=== PATIENT | male | born 2000 | race American Indian/Alaskan Native ===

== ENCOUNTER 2021-08-19 07:39 | Emergency (ER) | payer SELFPAY ==
--- NOTE | 2021-08-19 08:07 | Emergency Department Report ---
ED Shortness of Breath HPI - General Chief Complaint: Abdominal Pain Stated Complaint: RECTAL PAIN Time Seen by Provider: 08/19/21 08:00 Source: patient, EMS Mode of arrival: Stretcher Limitations: No Limitations - History of Present Illness Initial Comments: Patient is 21 years old male with history of end-stage renal disease on hemodialysis. Patient also had history of HIV. Patient presented to the ER complaining of shortness of breath. Patient stated that he missed his dialysis on Thursday. Patient denied any fever or chills. No chest pain, abdominal pain, nausea or vomiting. MD Complaint: shortness of breath, cough -: days(s) - Related Data Allergies Allergy/AdvReac Type Severity Reaction Status Date / Time amoxicillin Allergy Hives Verified 08/19/21 07:45 ED Review of Systems ROS: Stated complaint: RECTAL PAIN Other details as noted in HPI Comment: All other systems reviewed and negative Constitutional: denies: chills, fever ED Past Medical Hx - Past Medical History Previous Medical History?: No ED Physical Exam - General Limitations: No Limitations ED Course Vital Signs 08/19/21 07:44 Temperature 98.6 F Pulse Rate 80 Respiratory 16 Rate Blood Pressure 151/88 [Right] O2 Sat by Pulse 100 Oximetry Critical care attestation.: If time is entered above; I have spent that time in minutes in the direct care of this critically ill patient, excluding procedure time. ED Disposition Condition: Stable
--- NOTE | 2021-08-19 08:21 | Emergency Department Report ---
ED Abdominal Pain HPI - General Chief Complaint: Abdominal Pain Stated Complaint: RECTAL PAIN Time Seen by Provider: 08/19/21 08:00 Source: patient, EMS Mode of arrival: Stretcher Limitations: No Limitations - History of Present Illness Initial Comments: Patient is 21 years old male with no significant past medical history. Patient brought to the emergency room via EMS from home for evaluation of abdominal pain mainly to the left upper and lower quadrant area. Patient described the pain as sharp. Patient denied any nausea or vomiting however he described a mucus bloody diarrhea for the last 3 days. He denied any fever or chills. MD Complaint: abdominal pain -: days(s) (3) Location: LUQ, LLQ Radiation: none Migration to: no migration Severity scale (0 -10): 3 - Related Data Allergies Allergy/AdvReac Type Severity Reaction Status Date / Time amoxicillin Allergy Hives Verified 08/19/21 07:45 ED Review of Systems ROS: Stated complaint: RECTAL PAIN Other details as noted in HPI Comment: All other systems reviewed and negative Constitutional: denies: chills, fever Respiratory: denies: cough, shortness of breath, SOB with exertion, SOB at rest Cardiovascular: denies: chest pain, palpitations Gastrointestinal: abdominal pain. denies: nausea, vomiting, diarrhea, constipation, hematemesis, hematochezia Musculoskeletal: denies: back pain Neurological: denies: headache, weakness, numbness, paresthesias ED Past Medical Hx - Past Medical History Previous Medical History?: No ED Physical Exam - General Limitations: No Limitations General appearance: alert, in no apparent distress - Head Head exam: Present: atraumatic, normocephalic, normal inspection - Eye Eye exam: Present: normal appearance - ENT ENT exam: Present: normal exam, normal orophraynx, mucous membranes moist - Neck Neck exam: Present: normal inspection, full ROM. Absent: tenderness, meningismus - Respiratory Respiratory exam: Present: normal lung sounds bilaterally - Cardiovascular Cardiovascular Exam: Present: regular rate, normal rhythm, normal heart sounds - GI/Abdominal GI/Abdominal exam: Present: soft, normal bowel sounds. Absent: distended, tenderness, guarding, rebound, rigid, organomegaly, mass, bruit, pulsatile mass, hernia - Extremities Exam Extremities exam: Present: normal inspection, full ROM, normal capillary refill. Absent: tenderness - Back Exam Back exam: Present: normal inspection, full ROM. Absent: CVA tenderness (R), CVA tenderness (L) - Neurological Exam Neurological exam: Present: alert, oriented X3, CN II-XII intact, normal gait, reflexes normal. Absent: motor sensory deficit - Psychiatric Psychiatric exam: Present: normal mood - Skin Skin exam: Present: warm, intact, normal color ED Course Vital Signs 08/19/21 08/19/21 08/19/21 07:44 08:04 08:27 Temperature 98.6 F Pulse Rate 80 Respiratory 16 Rate Blood Pressure Blood Pressure 151/88 [Right] O2 Sat by Pulse 100 97 98 Oximetry 08/19/21 08/19/21 08/19/21 08:31 08:45 09:01 Temperature Pulse Rate Respiratory Rate Blood Pressure 116/58 124/56 Blood Pressure [Right] O2 Sat by Pulse 98 98 97 Oximetry 08/19/21 08/19/21 08/19/21 09:15 09:31 09:45 Temperature Pulse Rate 66 74 Respiratory 14 29 H Rate Blood Pressure 130/80 108/57 123/72 Blood Pressure [Right] O2 Sat by Pulse 98 97 97 Oximetry 08/19/21 08/19/21 10:15 10:31 Temperature Pulse Rate 50 L Respiratory 20 Rate Blood Pressure 119/47 112/63 Blood Pressure [Right] O2 Sat by Pulse 96 97 Oximetry ED Medical Decision Making - Lab Data Result diagrams: 08/19/21 08:30 08/19/21 08:30 - Radiology Data Radiology results: report reviewed - Medical Decision Making Patient is 21 years old male with no significant past medical history. Patient brought to the emergency room via EMS from home for evaluation of abdominal pain mainly to the left upper and lower quadrant area. Patient described the pain as sharp. Patient denied any nausea or vomiting however he described a mucus bloody diarrhea for the last 3 days. He denied any fever or chills. Labs reviewed and is unremarkable. CT abdomen and pelvis showed acute colitis. Patient received morphine, Zofran and normal saline. Patient stated that he is feeling much better. Patient given prescription for ciprofloxacin, Flagyl and Zofran. Patient advised to follow-up with his primary care physician in the next 2 to 3 days and to return to the ER if he develop any new symptoms. Critical care attestation.: If time is entered above; I have spent that time in minutes in the direct care of this critically ill patient, excluding procedure time. ED Disposition Clinical Impression: Acute abdominal pain, Acute colitis Disposition: 01 HOME / SELF CARE / HOMELESS Is pt being admited?: No Condition: Stable Instructions: Abdominal Pain, Adult, [id number], Colitis Referrals: ADINA DICKERSON MD [Staff Physician] - 3-5 Days
[2021-08-19 08:47] LABS: Basophils % (Auto) 0.4 % (0.0-1.8); Eosinophils % (Auto) 0.1 % (0.0-4.3); Hematocrit 41.1 % (35.5-45.6); Hemoglobin 14.5 gm/dl (11.8-15.2); Lymphocytes % (Auto) 14.6 % (13.4-35.0); Mean Corpuscular HGB Conc 35 % (32-34); Mean Corpuscular Volume 96 fl (84-94); Monocytes # (Auto) 0.9 K/mm3 (0.0-0.8); Monocytes % (Auto) 12.3 % (0.0-7.3); Platelet Count 214 K/mm3 (140-440); Red Cell Distribution Width 12.5 % (13.2-15.2)
[2021-08-19 09:04] LABS: Blood Urea Nitrogen 6 mg/dL (9-20); Calcium 9.7 mg/dL (8.4-10.2); Hemolysis Index 7
[2021-08-19 09:06] LABS: Albumin 4.6 g/dL (3.9-5); Bilirubin,Direct 0.2 mg/dL (0-0.2)
[2021-08-19 09:10] LABS: Bilirubin,Urine NEG (Negative); Blood,Urine MOD (Negative); Color,Urine Amber (Yellow); Mucus,Urine 3+ /HPF
[2021-08-19 09:11] LABS: BUN/Creatinine Ratio 9
[2021-08-19] MEDS ORDERED: SODIUM CHLORIDE 0.9% 1000 ML 1,000 ML IV ONE (09:17)
[2021-08-19] MEDS ORDERED: ONDANSETRON 4 MG/2 ML INJ IV ONE (09:17)
[2021-08-19] MEDS ORDERED: MORPHINE 4 MG/1 ML INJ IV ONE (09:17)
--- NOTE | 2021-08-19 10:02 | XRay Report ---
CHEST 1 VIEW INDICATION: Dyspnea. Stomach pain. COMPARISON: None FINDINGS: Support devices: None. Heart: Within normal limits. Lungs/Pleura: No acute air space or interstitial disease. Additional findings: None. IMPRESSION: No acute findings. Signer Name: Ruben Arauz Jr, MD Signed: 08/19/2021 9:58 AM Workstation Name: [id number]
--- NOTE | 2021-08-19 10:35 | Cat Scan Report ---
CT abdomen pelvis w con INDICATION / CLINICAL INFORMATION: abdominal pain. TECHNIQUE: Axial CT images were obtained through the abdomen and pelvis after 100 cc of Omnipaque [address] scans at this location are performed using CT dose reduction for ALARA by means of automated exposure control. COMPARISON: None available. FINDINGS: LOWER CHEST: No significant abnormality LIVER: No significant abnormality GALLBLADDER/BILIARY TREE: No significant abnormality PANCREAS: No significant abnormality SPLEEN: No significant abnormality ADRENALS: No significant abnormality RIGHT KIDNEY / URETER: No significant abnormality LEFT KIDNEY / URETER: No significant abnormality URINARY BLADDER: Bladder is partially decompressed, though grossly unremarkable. REPRODUCTIVE ORGANS: No significant abnormality STOMACH / BOWEL: Small bowel is normal in caliber. Mural thickening and inflammatory stranding of the colon extending from the splenic flexure to the proximal sigmoid. Remainder of the colon is unremark able. No evidence of appendicitis. LYMPH NODES: No significant adenopathy. VASCULATURE: No significant abnormality. OTHER: No free air, free fluid, or focal fluid collection is identified. SKELETAL SYSTEM: No acute osseous findings. IMPRESSION: 1. Acute colitis of the colon extending from the splenic flexure to the proximal sigmoid. This may be infectious or inflammatory in etiology. 2. No other acute abnormality. Signer Name: Saroj Alonso MD Signed: 08/19/2021 10:31 AM Workstation Name: [id number]
[2021-08-19 11:24] VITALS: BP 124/69
--- NOTE | 2021-08-20 10:55 | Electrocardiograph Report ---
[facility] Test Date: 2021-08-19 Test Time: 09:08:04 Pat Name: CHERY DELANEY Department: Room: Gender: M Compliance Review Officer: ED : 2000 Requested By: RAYMOND BLUM Order Number: [id number] Reading MD: Philippe Canales Measurements Intervals [place] Rate: 53 P: 24 NE: 162 QRS: 56 QRSD: 83 T: 39 QT: 415 QTc: 389 Interpretive Statements Sinus bradycardia ST elev, probable normal early repol pattern No previous ECG available for comparison Electronically Signed On 08-20-2021 10:54:47 EDT by Philippe Canales
== END 2021-08-19 12:25 | disposition home or self-care (01) ==
LOC: ED 07:39
DX: R10.0 Acute abdomen (principal); K51.90 Ulcerative colitis, unspecified, without complications; Z88.0 Allergy status to penicillin
CPT/HCPCS: 36415; 71045; 74177; 80048; 80076; 81001; 83690; 85025; 87086; 93005; 96361; 96374; 96375; 99285; J2270; J2405; J7030; Q9967; Q0162

== ENCOUNTER 2021-09-06 19:51 | Emergency (ER) | payer SELFPAY ==
[2021-09-06] MEDS ORDERED: KETOROLAC 30 MG/1 ML INJ IM ONE (22:45)
[2021-09-06] MEDS ORDERED: dexAMETHasone 20 MG/5 ML VIAL IM ONE (22:45)
[2021-09-06] MEDS ORDERED: CLINDAMYCIN 150 MG CAP PO ONE (22:45)
[2021-09-06] MEDS ORDERED: LIDOCAINE VISCOUS 2% 15 ML ORAL LIQD PO ONE (22:45)
--- NOTE | 2021-09-07 00:01 | Emergency Department Report ---
ED General Adult HPI - General Chief complaint: Sore Throat Stated complaint: THROAT PAIN Source: patient Mode of arrival: Ambulatory Limitations: No Limitations - History of Present Illness Initial comments: Patient is a 21-year-old -Filipino male with a history of chronic recurrent streptococcal tonsillitis presents to the ED with complaint of acute onset persistent sore throat with dysphagia, drooling, and thick white exudates for the last 5 days. Patient states that he thought that the symptoms would improve in a few days but that the symptoms are worsened. Patient states that the symptoms are typical of the symptoms he experienced a while ago when he was diagnosed with strep pharyngitis and had to take antibiotics. Patient denies fever, chills, headache, nausea and vomiting, diarrhea, dysuria, urinary frequency and urgency, chest pain, shortness of breath, abdominal pain, nasal and sinus congestion or ear pain. MD Complaint: Sore throat, dysphagia, anterior right cervical lymphadenopathy -: Sudden, days(s) (5) Location: mouth Radiation: non-radiation Severity scale (0 -10): 7 Quality: aching, sharp Consistency: constant Improves with: none Worsens with: eating Associated Symptoms: denies other symptoms, loss of appetite. denies: confusion, chest pain, cough, diaphoresis, fever/chills, headaches, malaise, nausea/vomiting, rash, seizure, shortness of breath, syncope, weakness Treatments Prior to Arrival: none - Related Data Previous Rx's Medication Instructions Recorded Last Taken Type Ciprofloxacin HCl 500 mg PO BID 10 Days #14 tablet 08/19/21 Unknown Rx Dicyclomine [Bentyl] 20 mg PO QID #20 tablet 08/19/21 Unknown Rx Ondansetron [Zofran Odt] 4 mg PO Q8HR PRN #14 tab.rapdis 08/19/21 Unknown Rx metroNIDAZOLE [Flagyl] 500 mg PO Q12HR #14 tab 08/19/21 Unknown Rx Clindamycin [Clindamycin CAP] 300 mg PO Q6H #40 cap 09/07/21 Unknown Rx Ibuprofen [Motrin] 800 mg PO Q8HR PRN #30 tablet 09/07/21 Unknown Rx Lidocaine Viscous 2% 10 ml PO Q6H PRN #120 ml 09/07/21 Unknown Rx Ondansetron [Zofran Odt] 4 mg PO Q8HR PRN #15 tab.rapdis 09/07/21 Unknown Rx predniSONE [Deltasone] 40 mg PO QDAY #10 tab 09/07/21 Unknown Rx Allergies Allergy/AdvReac Type Severity Reaction Status Date / Time amoxicillin Allergy Hives Verified 08/19/21 07:45 ED Review of Systems ROS: Stated complaint: THROAT PAIN Other details as noted in HPI Constitutional: denies: chills, fever Eyes: denies: eye pain, eye discharge, vision change ENT: throat pain. denies: ear pain Respiratory: denies: cough, shortness of breath, wheezing Cardiovascular: denies: chest pain, palpitations Endocrine: no symptoms reported Gastrointestinal: denies: abdominal pain, nausea, vomiting, diarrhea Genitourinary: denies: urgency, dysuria Musculoskeletal: denies: back pain, joint swelling, arthralgia Skin: denies: rash, lesions Neurological: denies: headache, weakness, paresthesias Psychiatric: denies: anxiety, depression Hematological/Lymphatic: denies: easy bleeding, easy bruising ED Past Medical Hx - Social History Smoking Status: Never Smoker Substance Use Type: Alcohol - Medications Home Medications: Home Medications Medication Instructions Recorded Confirmed Last Taken Type Ciprofloxacin HCl 500 mg PO BID 10 Days #14 tablet 08/19/21 Unknown Rx Dicyclomine [Bentyl] 20 mg PO QID #20 tablet 08/19/21 Unknown Rx Ondansetron [Zofran Odt] 4 mg PO Q8HR PRN #14 tab.rapdis 08/19/21 Unknown Rx metroNIDAZOLE [Flagyl] 500 mg PO Q12HR #14 tab 08/19/21 Unknown Rx Clindamycin [Clindamycin CAP] 300 mg PO Q6H #40 cap 09/07/21 Unknown Rx Ibuprofen [Motrin] 800 mg PO Q8HR PRN #30 tablet 09/07/21 Unknown Rx Lidocaine Viscous 2% 10 ml PO Q6H PRN #120 ml 09/07/21 Unknown Rx Ondansetron [Zofran Odt] 4 mg PO Q8HR PRN #15 tab.rapdis 09/07/21 Unknown Rx predniSONE [Deltasone] 40 mg PO QDAY #10 tab 09/07/21 Unknown Rx ED Physical Exam - General Limitations: No Limitations General appearance: alert, in no apparent distress - Head Head exam: Present: atraumatic, normocephalic, normal inspection - Eye Eye exam: Present: normal appearance, PERRL, EOMI Pupils: Present: normal accommodation - ENT ENT exam: Present: mucous membranes moist, TM's normal bilaterally, normal external ear exam, other (Swollen, erythematous right tonsils and oropharynx with thick yellowish exudates, uvula is midline, no sign of peritonsillar abscess) - Neck Neck exam: Present: normal inspection, full ROM, lymphadenopathy (Palpable right-sided anterior cervical lymphadenopathy). Absent: tenderness - Respiratory Respiratory exam: Present: normal lung sounds bilaterally. Absent: respiratory distress, wheezes, rales, rhonchi, chest wall tenderness, decreased breath sounds - Cardiovascular Cardiovascular Exam: Present: normal rhythm, tachycardia, normal heart sounds. Absent: systolic murmur, diastolic murmur, rubs, gallop - GI/Abdominal GI/Abdominal exam: Present: soft, normal bowel sounds. Absent: tenderness, rebound, hyperactive bowel sounds, hypoactive bowel sounds, organomegaly - Extremities Exam Extremities exam: Present: normal inspection, full ROM, normal capillary refill. Absent: tenderness - Back Exam Back exam: Present: normal inspection, full ROM. Absent: tenderness, CVA tenderness (R), CVA tenderness (L), muscle spasm, paraspinal tenderness, vertebral tenderness, rash noted - Neurological Exam Neurological exam: Present: alert, oriented X3, CN II-XII intact, normal gait, reflexes normal - Psychiatric Psychiatric exam: Present: normal affect, normal mood - Skin Skin exam: Present: warm, dry, intact, normal color. Absent: rash ED Course Vital Signs 09/06/21 20:53 Temperature 99.1 F Pulse Rate 101 H Respiratory 18 Rate Blood Pressure 147/84 O2 Sat by Pulse 100 Oximetry ED Medical Decision Making - Medical Decision Making This is a 21-year-old -Filipino male with a history of chronic recurrent streptococcal tonsillitis presents to the ED with complaint of acute onset persistent sore throat with dysphagia, drooling, and thick white exudates for the last 5 days. Patient states that he thought that the symptoms would improve in a few days but that the symptoms are worsened. Patient states that the symptoms are typical of the symptoms he experienced a while ago when he was diagnosed with strep pharyngitis and had to take antibiotics. In the ED, patient is alert and oriented x3 and is not in any distress. Patient was t reated for pain in the ED and also received Decadron 10 mg intramuscular injection. Patient was discharged home on medications including antibiotics and advised to follow-up with his primary care physician in 7 to 10 days for reevaluation. Patient was also given a referral to an ENT physician Dr. Escobar for follow-up in 7 to 10 days for reevaluation. Patient is advised return to the ED immediately if symptoms get worse. - Differential Diagnosis Strep pharyngitis; bacterial tonsillitis; viral pharyngitis; Critical care attestation.: If time is entered above; I have spent that time in minutes in the direct care of this critically ill patient, excluding procedure time. ED Disposition Clinical Impression: Acute bacterial tonsillitis, Acute bacterial pharyngitis Disposition: HOME / SELF CARE / HOMELESS Is pt being admited?: No Does the pt Need Aspirin: No Condition: Stable Instructions: Tonsillitis, [id number], Pharyngitis, [id number] Additional Instructions: Take medication with food, drink plenty of fluids and follow-up with your primary care physician in 7 to 10 days for reevaluation. Return to the ED immediately if symptoms get worse. Ensure that you follow-up with the ENT physician Dr. Escobar in 7 to 10 days for reevaluation. Contact his office to schedule a follow-up appointment. Prescriptions: Clindamycin [Clindamycin CAP] 300 mg PO Q6H #40 cap predniSONE [Deltasone] 40 mg PO QDAY #10 tab Lidocaine Viscous 2% 10 ml PO Q6H PRN #120 ml PRN Reason: Sore Throat Ibuprofen [Motrin] 800 mg PO Q8HR PRN #30 tablet PRN Reason: Pain , Severe (7-10) Ondansetron [Zofran Odt] 4 mg PO Q8HR PRN #15 tab.rapdis PRN Reason: Nausea Referrals: [facility] [Provider Group] - 7-10 days Forms: Work/School Release Form(ED) Time of Disposition: 00:05 Print Language: BULGARIAN
[2021-09-07] MEDS ORDERED: dexAMETHasone 20 MG/5 ML VIAL IM ONE (01:30)
[2021-09-07] MEDS ORDERED: LIDOCAINE VISCOUS 2% 15 ML ORAL LIQD PO ONE (01:30)
[2021-09-07] MEDS ORDERED: KETOROLAC 30 MG/1 ML INJ IM ONE (01:30)
[2021-09-07 02:57] VITALS: BP 125/75
== END 2021-09-07 02:56 | disposition home or self-care (01) ==
LOC: ED 19:51
DX: J03.80 Acute tonsillitis due to other specified organisms (principal); B96.89 Other specified bacterial agents as the cause of diseases classified elsewhere; Z88.1 Allergy status to other antibiotic agents; Z72.89 Other problems related to lifestyle; Z79.899 Other long term (current) drug therapy
CPT/HCPCS: 96372; 99282; J1100; J1885

== ENCOUNTER 2021-12-30 06:55 | Emergency (ER) | payer SELFPAY ==
[2021-12-30 07:14] VITALS: BP 122/78
--- NOTE | 2021-12-30 08:23 | XRay Report ---
LEFT FOOT 2 VIEWS INDICATION / CLINICAL INFORMATION: PAIN OVER ACCHILES AREA. COMPARISON: None available. FINDINGS: BONES / JOINT(S): No acute fracture or subluxation. No significant arthritis. SOFT TISSUES: No significant abnormality. ADDITIONAL FINDINGS: None. Signer Name: Víctor Bowens MD Signed: 12/30/2021 8:19 AM Workstation Name: [id number]
--- NOTE | 2021-12-30 08:24 | XRay Report ---
RIGHT HAND 3 VIEWS INDICATION / CLINICAL INFORMATION: PAIN. COMPARISON: None available. FINDINGS: BONES / JOINT(S): No acute fracture or subluxation. No significant arthritis. SOFT TISSUES: No significant abnormality. ADDITIONAL FINDINGS: None. Signer Name: Víctor Bowens MD Signed: 12/30/2021 8:20 AM Workstation Name: [id number]
[2021-12-30] MEDS ORDERED: IBUPROFEN 800 MG TAB PO ONE (08:28)
[2021-12-30] MEDS ORDERED: predniSONE 20 MG TAB PO ONE (08:28)
--- NOTE | 2021-12-30 08:28 | Emergency Department Report ---
Upper Extremity - HPI Chief Complaint: Skin Rash Stated Complaint: RT HAND PAIN Time Seen by Provider: 12/30/21 07:41 ED Review of Systems ROS: Stated complaint: RT HAND PAIN Other details as noted in HPI Comment: All other systems reviewed and negative ED Past Medical Hx - Past Medical History Previous Medical History?: No - Surgical History Past Surgical History?: No - Family History Family history: no significant - Social History Smoking Status: Current Every Day Smoker Substance Use Type: Marijuana - Medications Home Medications: Home Medications Medication Instructions Recorded Confirmed Last Taken Type Ciprofloxacin HCl 500 mg PO BID 10 Days #14 tablet 08/19/21 Unknown Rx Dicyclomine [Bentyl] 20 mg PO QID #20 tablet 08/19/21 Unknown Rx Ondansetron [Zofran Odt] 4 mg PO Q8HR PRN #14 tab.rapdis 08/19/21 Unknown Rx metroNIDAZOLE [Flagyl] 500 mg PO Q12HR #14 tab 08/19/21 Unknown Rx Clindamycin [Clindamycin CAP] 300 mg PO Q6H #40 cap 09/07/21 Unknown Rx Ibuprofen [Motrin] 800 mg PO Q8HR PRN #30 tablet 09/07/21 Unknown Rx Lidocaine Viscous 2% 10 ml PO Q6H PRN #120 ml 09/07/21 Unknown Rx Ondansetron [Zofran Odt] 4 mg PO Q8HR PRN #15 tab.rapdis 09/07/21 Unknown Rx predniSONE [Deltasone] 40 mg PO QDAY #10 tab 09/07/21 Unknown Rx Ibuprofen [Motrin] 800 mg PO Q8HR PRN #30 tablet 12/30/21 Unknown Rx predniSONE [Deltasone] 20 mg PO DAILY #5 tablet 12/30/21 Unknown Rx Upper Extremity Exam - Exam General: Vital signs noted. No distress. Alert and acting appropriately. Head and Torso: No HEENT Abnormality, No Neck Tenderness, No Chest/Lungs Abnormality, No Abdominal Tenderness, No Back Tenderness Shoulder Exam: Yes Normal Range of Motion in Shoulder, No Shoulder Tenderness, No Clavicle Tenderness, No Shoulder Deformity, No AC Joint Tenderness Arm Exam: No Arm/Humerus Tenderness, No Arm Deformity Elbow: No Elbow Tenderness, No Normal Range of Motion in Elbow, No Elbow Deformity Forearm: No Forearm Tenderness, No Forearm Deformity, No Pain with Pronation, No Pain with Supination Wrist: Yes Wrist Tenderness, No Normal ROM in Wrist (LIMITED BY PAIN), No Wrist Deformity, No Snuffbox Tenderness, No Pain with Axial Thumb Compression Hand: Yes Normal ROM in Digit(s), No Hand Tenderness, No Hand Deformity, No Digit Tenderness, No Digit(s) Deformity, No Tendon Dysfunction CMS Exam: No Broken Skin, No Normal Distal Pulses, No Normal Capillary Refill, No Normal Distal Sensation ED Course Vital Signs 12/30/21 06:57 Temperature 98 F Pulse Rate 78 Respiratory 18 Rate Blood Pressure 122/78 O2 Sat by Pulse 100 Oximetry - Reevaluation(s) Reevaluation #1: 12/30/21 08:32 CO L HEEL PAIN AMBULATORY NEUROVASC INTACT A[facility]ILLES INTACT ED Medical Decision Making - Radiology Data Radiology results: report reviewed, image reviewed [facility] - Medical Decision Making Vital Signs 12/30/21 06:57 Temperature 98 F Pulse Rate 78 Respiratory 18 Rate Blood Pressure 122/78 O2 Sat by Pulse 100 Oximetry MEDICATED WITH PREDNISONE AND MOTRIN 800 MG - Differential Diagnosis RO FX/ CYST Critical care attestation.: If time is entered above; I have spent that time in minutes in the direct care of this critically ill patient, excluding procedure time. ED Disposition Clinical Impression: Wrist pain, Heel pain Disposition: 01 HOME / SELF CARE / HOMELESS Is pt being admited?: No Does the pt Need Aspirin: No Condition: Stable Instructions: Wrist Pain, Adult Additional Instructions: MEDS ORDERED TODAY FOLLOW UP WITH ORTHO THIS WEEK REFERRAL BELOW XRAYS ARE NORMAL Referrals: URSZULA PIZANO MD [Staff Physician] - 3-5 Days Forms: Work/School Release Form(ED) Time of Disposition: 08:27
== END 2021-12-30 08:53 | disposition home or self-care (01) ==
LOC: ED 06:55
DX: M25.531 Pain in right wrist (principal); M79.672 Pain in left foot; F17.200 Nicotine dependence, unspecified, uncomplicated; F12.90 Cannabis use, unspecified, uncomplicated; Z79.899 Other long term (current) drug therapy; Z88.1 Allergy status to other antibiotic agents
CPT/HCPCS: 99284